=== PATIENT | male | born 1965 | race Caucasian/White ===

== ENCOUNTER 2021-06-09 05:47 | Emergency (ER) | payer SELFPAY ==
[~2021-06-09] VITALS: Ht 172.7 cm; Wt 78.0 kg
[2021-06-09 05:52] VITALS: BP 155/90
[2021-06-09 07:12] LABS: HEMATOCRIT. 35.6 % (42.0-52.0); HEMOGLOBIN. 11.5 g/dL (14.0-18.0); MEAN CORPUSCULAR HEMOGLOBIN 27.8 pg (28.0-32.0); MEAN CORPUSCULAR VOLUME 85.8 fL (80.0-94.0); MEAN PLATELET VOLUME 7.4 fl (7.4-10.4); PLATELET 163 x1000/uL (130-400); RED BLOOD CELL COUNT 4.14 mill/uL (4.7-6.1); RED CELL DISTRIBUTION WIDTH 20.3 % (11.6-14.6)
[2021-06-09 07:23] LABS: CHLORIDE 106 mEq/L (98-107)
[2021-06-09 07:26] LABS: ETHANOL BLOOD 118 mg/dL
[2021-06-09 07:41] LABS: CLARITY URINE CLEAR (CLEAR); COLOR URINE YELLOW (YELLOW); KETONES URINE TRACE (NEGATIVE); LEUKOCYTE ESTERASE URINE NEGATIVE (NEGATIVE); NITRITE URINE NEGATIVE (NEGATIVE); OCCULT BLOOD URINE 2+ (NEGATIVE); PH URINE 5.5 (4.5-8.0); PROTEIN URINE 1+ (NEGATIVE); UROBILINOGEN URINE 0.2 E.U./dL (0.2-1.0)
[2021-06-09 07:45] LABS: PLATELET ESTIMATE NORMAL
[2021-06-09 08:05] LABS: PHENCYCLIDINE URINE SCREEN PRESUMTIVE POSITIVE (NEGATIVE)
[2021-06-09 08:07] LABS: *AMPHETAMINES SCREEN URINE NEGATIVE (NEGATIVE); *BARBITURATES SCREEN URINE NEGATIVE (NEGATIVE); *BENZODIAZEPINES SCREEN URINE PRESUMTIVE POSITIVE (NEGATIVE); *COCAINE SCREEN URINE NEGATIVE (NEGATIVE); CANNABINOID URINE SCREEN PRESUMTIVE POSITIVE (NEGATIVE); METHADONE URINE SCREEN NEGATIVE (NEGATIVE); OPIATES URINE SCREEN NEGATIVE (NEGATIVE)
== END 2021-06-09 07:15 | disposition left against medical advice (07) ==
LOC: ER 06:48
DX: R53.1 Weakness (principal)
CPT/HCPCS: 36415; 80053; 80305; 80307; 80320; 80329; 81003; 85025; 99283; G0480

== ENCOUNTER 2021-06-09 18:40 | Inpatient (IN) | payer SELFPAY ==
[~2021-06-09] VITALS: Ht 182.9 cm; Wt 81.2 kg
[2021-06-09] MEDS ORDERED: SODIUM CHLORIDE 0.9% 1,000 ML IV ONE (20:00)
[2021-06-09] MEDS ORDERED: LORAZEPAM 2MG/ML CPJ IV ONE (20:00)
[2021-06-09] MEDS ORDERED: FOLIC ACID 1 MG, THIAMINE HCL 100 MG, MVI, ADULT NO.1 10 ML in DEXTROSE 5% WATER 1,000 ML IV ONE (20:00)
[2021-06-09 22:26] LABS: CHLORIDE 110 mEq/L (98-107)
[2021-06-09 22:27] LABS: HEMATOCRIT. 29.3 % (42.0-52.0); HEMOGLOBIN. 9.7 g/dL (14.0-18.0); MEAN CORPUSCULAR HEMOGLOBIN 27.8 pg (28.0-32.0); MEAN CORPUSCULAR VOLUME 84.2 fL (80.0-94.0); MEAN PLATELET VOLUME 7.6 fl (7.4-10.4); PLATELET 139 x1000/uL (130-400); RED BLOOD CELL COUNT 3.48 mill/uL (4.7-6.1); RED CELL DISTRIBUTION WIDTH 19.7 % (11.6-14.6)
[2021-06-09 22:30] LABS: ETHANOL BLOOD < 10 mg/dL
[2021-06-09] MEDS ORDERED: DIPHENHYDRAMINE 50MG/ML VIAL IV ONE (22:45)
[2021-06-09] MEDS ORDERED: MAGNESIUM 1 G PREMIX 100 ML IV ONE (22:45)
[2021-06-09 23:04] LABS: PLATELET ESTIMATE NORMAL
[2021-06-10 02:10] LABS: CLARITY URINE CLEAR (CLEAR); COLOR URINE YELLOW (YELLOW); KETONES URINE TRACE (NEGATIVE); LEUKOCYTE ESTERASE URINE NEGATIVE (NEGATIVE); NITRITE URINE NEGATIVE (NEGATIVE); OCCULT BLOOD URINE NEGATIVE (NEGATIVE); PROTEIN URINE NEGATIVE (NEGATIVE); SPECIFIC GRAVITY URINE 1.022 (1.005-1.030)
[2021-06-10 02:21] LABS: METHADONE URINE SCREEN NEGATIVE (NEGATIVE)
[2021-06-10 02:22] LABS: *BARBITURATES SCREEN URINE NEGATIVE (NEGATIVE); *COCAINE SCREEN URINE NEGATIVE (NEGATIVE); OPIATES URINE SCREEN NEGATIVE (NEGATIVE)
[2021-06-10 02:23] LABS: *AMPHETAMINES SCREEN URINE NEGATIVE (NEGATIVE); *BENZODIAZEPINES SCREEN URINE PRESUMTIVE POSITIVE (NEGATIVE); CANNABINOID URINE SCREEN PRESUMTIVE POSITIVE (NEGATIVE); PHENCYCLIDINE URINE SCREEN PRESUMTIVE POSITIVE (NEGATIVE)
[2021-06-10] MEDS: CALAMINE LOTION 120ML TOP PRN ×2 (03:15→19:24)
[2021-06-10] MEDS ORDERED: ONDANSETRON HCL 4MG/2ML INJ IV PRN (08:45)
[2021-06-10] MEDS ORDERED: ACETAMINOPHEN 325MG TABLET PO PRN (08:45)
[2021-06-10] MEDS ORDERED: LORAZEPAM 2MG/ML CPJ IV PRN (10:45)
[2021-06-10] MEDS: THIAMINE HCL 100MG TABLET PO SCH (13:15)
[2021-06-10] MEDS: CHLORDIAZEPOXIDE 25MG CAPSULE PO SCH ×2 (13:15→21:53)
[2021-06-10 15:54] VITALS: BP 145/84
[2021-06-10 16:29] VITALS: BP 145/84
[2021-06-10 20:00] VITALS: BP 149/81
[2021-06-11] VITALS: BP 159/86
[2021-06-11] MEDS: DIPHENHYDRAMINE 50MG CAPSULE PO PRN ×2 (00:59→11:55)
[2021-06-11] MEDS: CALAMINE LOTION 120ML TOP PRN ×2 (01:27→11:55)
[2021-06-11 04:00] VITALS: BP 151/85
[2021-06-11] MEDS: CHLORDIAZEPOXIDE 25MG CAPSULE PO SCH ×3 (05:18→22:59)
[2021-06-11 08:00] VITALS: BP 152/84
[2021-06-11] MEDS: THIAMINE HCL 100MG TABLET PO SCH (09:27)
[2021-06-11 12:00] VITALS: BP 165/93
[2021-06-11 16:00] VITALS: BP 160/91
[2021-06-11 20:00] VITALS: BP 143/78
[2021-06-11] MEDS ORDERED: PERMETHRIN 5% CREAM 60GM TOP NR (20:00)
[2021-06-11] MEDS ORDERED: IVERMECTIN 3 MG TABLET PO SCH (20:00)
[2021-06-12] VITALS: BP 164/97
[2021-06-12 04:00] VITALS: BP 136/83
[2021-06-12] MEDS: DIPHENHYDRAMINE 50MG CAPSULE PO PRN (05:33)
[2021-06-12] MEDS: CHLORDIAZEPOXIDE 25MG CAPSULE PO SCH (05:33)
[2021-06-12 07:28] LABS: CHLORIDE 104 mEq/L (98-107); HEMATOCRIT. 30.6 % (42.0-52.0); HEMOGLOBIN. 10.1 g/dL (14.0-18.0); MEAN CORPUSCULAR HEMOGLOBIN 28.3 pg (28.0-32.0); MEAN CORPUSCULAR VOLUME 86.2 fL (80.0-94.0); MEAN PLATELET VOLUME 7.9 fl (7.4-10.4); PLATELET 156 x1000/uL (130-400); RED BLOOD CELL COUNT 3.55 mill/uL (4.7-6.1); RED CELL DISTRIBUTION WIDTH 20.8 % (11.6-14.6)
[2021-06-12] MEDS ORDERED: THIA100T88 MT (07:39)
[2021-06-12] MEDS ORDERED: MULT-1146 MT (07:39)
[2021-06-12 07:57] LABS: HEPATITIS B SURFACE ANTIGEN NEGATIVE
[2021-06-12 08:00] VITALS: BP 113/65
[2021-06-12] MEDS: THIAMINE HCL 100MG TABLET PO SCH (09:44)
[2021-06-12 09:50] LABS: PLATELET ESTIMATE NORMAL
[2021-06-12 12:00] VITALS: BP 122/88
[2021-06-13 08:07] LABS: HIV SCREEN 4G Non Reactive (Non Reactive)
== END 2021-06-12 19:46 | disposition left against medical advice (07) | DRG 723 ==
LOC: ER 18:40 → MICUSO 21:33 → EDBEDREQ 21:40 → EDBEDREQTM 21:40 → 6WST 06-10 12:50
PROVIDERS: ADMIT Internal Medicine; ATTEND Internal Medicine
DX: B34.9 Viral infection, unspecified (principal); E44.0 Moderate protein-calorie malnutrition; E87.8 Other disorders of electrolyte and fluid balance, not elsewhere classified; D72.819 Decreased white blood cell count, unspecified; D64.9 Anemia, unspecified; B88.9 Infestation, unspecified; B89 Unspecified parasitic disease; E83.42 Hypomagnesemia; F10.239 Alcohol dependence with withdrawal, unspecified; F32.A Depression, unspecified; F17.210 Nicotine dependence, cigarettes, uncomplicated; F19.10 Other psychoactive substance abuse, uncomplicated; Z20.822 Contact with and (suspected) exposure to COVID-19; F99 Mental disorder, not otherwise specified; Z53.29 Procedure and treatment not carried out because of patient's decision for other reasons; Z68.24 Body mass index [BMI] 24.0-24.9, adult
CPT/HCPCS: 36415; 71045; 80048; 80053; 80305; 80307; 80320; 80329; 81003; 83735; 84145; 84484; 85025; 86705; 86709; 86803; 87340; 87389; 87426; 93005; 99285; C1893; J1200; J2060; J3411; J3475; J3490; J7030; J7070; Q0163; U0003; U0005; G0480

== ENCOUNTER 2021-06-12 20:32 | Emergency (ER) | payer SELFPAY ==
[~2021-06-12] VITALS: Ht 170.2 cm; Wt 81.6 kg
[~2021-06-12 20:32] MED LIST: MULT-1146 MT; THIA100T88 MT
[2021-06-12] MEDS ORDERED: LACTATED RINGERS 1,000 ML IV SCH (22:00)
[2021-06-13 03:16] VITALS: BP 116/74
== END 2021-06-13 03:18 | disposition home or self-care (01) ==
LOC: EDUNIT# 20:32 → ER 20:32 → EDBD 20:32 → ER 06-13 03:18
DX: F10.229 Alcohol dependence with intoxication, unspecified (principal); Y90.9 Presence of alcohol in blood, level not specified; F17.210 Nicotine dependence, cigarettes, uncomplicated
CPT/HCPCS: 99285

== ENCOUNTER 2021-06-15 02:05 | Emergency (ER) | payer SELFPAY ==
[~2021-06-15] VITALS: Ht 182.9 cm; Wt 82.0 kg
[2021-06-15 03:01] LABS: HEMATOCRIT. 34.5 % (42.0-52.0); HEMOGLOBIN. 11.1 g/dL (14.0-18.0); MEAN CORPUSCULAR HEMOGLOBIN 27.7 pg (28.0-32.0); MEAN CORPUSCULAR VOLUME 86.3 fL (80.0-94.0); MEAN PLATELET VOLUME 7.4 fl (7.4-10.4); PLATELET 207 x1000/uL (130-400); RED CELL DISTRIBUTION WIDTH 20.9 % (11.6-14.6)
[2021-06-15 03:08] LABS: CHLORIDE 90 mEq/L (98-107)
[2021-06-15 03:12] LABS: ETHANOL BLOOD 193 mg/dL
[2021-06-15 03:46] LABS: PLATELET ESTIMATE NORMAL
[2021-06-15] MEDS ORDERED: SODIUM CHLORIDE 0.9% 1,000 ML IV ONE (04:15)
[2021-06-15 07:40] VITALS: BP 132/70
== END 2021-06-15 07:42 | disposition home or self-care (01) ==
LOC: ER 02:05
DX: T51.0X1A Toxic effect of ethanol, accidental (unintentional), initial encounter (principal); G92.8 Other toxic encephalopathy; Y90.6 Blood alcohol level of 120-199 mg/100 ml; Y92.89 Other specified places as the place of occurrence of the external cause
CPT/HCPCS: 36415; 80053; 80320; 84443; 85025; 96360; 99285; G0480